=== PATIENT | male | born 1990 | race Caucasian/White ===

== ENCOUNTER 2018-02-10 10:40 | Emergency (ER) | payer BC ==
[~2018-02-10] VITALS: Ht 182.9 cm; Wt 116.0 kg
[2018-02-10] MEDS ORDERED: PSEUDOEPHEDRINE HCL 30MG TABLET PO STA (11:21)
[2018-02-10 11:35] VITALS: BP 128/75
== END 2018-02-10 11:30 | disposition home or self-care (01) ==
LOC: ER 10:40
DX: H66.93 Otitis media, unspecified, bilateral (principal); Z88.0 Allergy status to penicillin; Z98.890 Other specified postprocedural states
CPT/HCPCS: 99283